=== PATIENT | female | born 2000 | race Caucasian/White ===

== ENCOUNTER 2022-07-01 14:40 | Emergency (ER) | payer BC, SELFPAY ==
[2022-07-01 14:48] VITALS: BP 130/86; PULSE 97; RESP 18; TEMP 36.7; O2SAT 99; BMI 20.1
--- NOTE | 2022-07-01 14:50 | ECG_ITS ---
Test Reason : CHEST PAIN Blood Pressure : / mmHG Vent. Rate : 077 BPM Atrial Rate : 077 BPM P-R Int : 128 ms QRS Dur : 068 ms QT Int : 368 ms P-R-T Axes : 016 083 016 degrees QTc Int : 416 ms Normal sinus rhythm Normal ECG No previous ECGs available Referred By: Jameson Stephens Electronically Signed By:DOE DYER MD
--- NOTE | 2022-07-01 14:51 | ED.CHESTPAIN ---
HPI - Chest Pain General Chief Complaint: Chest Pain Stated Complaint: Chest Pain Time Seen by Provider: 07/01/22 17:49 Source: patient and RN notes reviewed Mode of arrival: ambulatory Limitations: no limitations History of Present Illness HPI narrative: [id number]-female presents today with complaints of pressure-like midsternal left sided chest pain x 1 hour prior to ED arrival. She rates her pain as a 4-10. Patient denies any nausea, vomiting, shortness of breath or palpitations. She states that the pain worsens with palpation of the left side of her chest. She reports that she has had a cough for 1-2 weeks. Related Data Allergies Allergy/AdvReac Type Severity Reaction Status Date / Time coconut Allergy Severe Anaphylaxis Verified 07/01/22 14:48 Review of Systems Constitutional: Constitutional: Reports as per HPI, Denies chills and Denies fatigue Cardiovascular: Cardiovascular: Denies dyspnea Respiratory: Respiratory: Denies cough and Denies dyspnea Gastrointestinal: Gastrointestinal: Denies abdominal pain, Denies constipation and Denies vomiting Genitourinary: Genitourinary: Denies dysuria Endocrine: Endocrine: Denies fatigue [facility] Social History Social History Advance Directives: No Advance Directives Information Provided: No Physical Exam Vital Signs: Vital Signs: Last Vital Signs Temp 98.0 F 07/01/22 14:48 Pulse 97 07/01/22 14:48 Resp 18 07/01/22 14:48 BP 130/86 07/01/22 14:48 Pulse Ox 99 07/01/22 14:48 O2 Del Method 07/01/22 14:48 BMI result Body Mass Index 20.1 Const: General: healthy appearing, comfortable and no acute distress Orientation/consciousness: patient oriented x3 Chest: Chest palpation & inspection: localized rib tenderness with anteroposterior compression Resp: Effort & Inspection: normal respiratory effort Auscultation: clear to auscultation bilaterally Neuro: General: patient oriented x3 Extrem: General: Yes full ROM, Yes capillary refill normal and Yes no pedal edema Medical Decision Making Medical Decision Making [facility] Narrative: RME- 21-year-old female presents for evaluation of headache for 1 week as well as chest pain aside from now and half ago. Denies any fluids and appeared reportedly had a negative at home COVID test prior to arrival. Denies medical history. Vital signs are stable. Plan for EKG and viral swab. Differential Diagnosis Chest wall pain Costochondritis ACS less likely Bronchitis Pneumonia Lab Data Labs: Lab Results 07/01/22 Range/Units 15:27 Influenza Type A (PCR) NEGATIVE (Negative) Influenza Type B (PCR) NEGATIVE (Negative) RSV RNA Qual (PCR) NEGATIVE (Negative) SARS-CoV-2 RNA (RT-PCR) NEGATIVE (Negative) Independent Interpretation I performed an independent interpretation of an: EKG (Sinus rhythm without any acute ischemia) Discharge Plan Discharge Clinical Impression: Acute costochondritis Patient Disposition: Home, Self-Care Instructions: Costochondritis (ED) Additional Instructions: Your EKG performed today was normal. Take Advil or Aleve as directed as needed for symptoms. Follow up with your primary care physician. If any new or worsening symptoms occur, please return for re-evaluation.
[2022-07-01 16:13] LABS: Influenza A PCR NEGATIVE (Negative); Influenza B PCR NEGATIVE (Negative); Resp Syncy Virus RNA Qual PCR NEGATIVE (Negative); SARS COV2 PCR INHOUSE NEGATIVE (Negative)
== END 2022-07-01 17:59 | disposition home or self-care (01) ==
PROVIDERS: Physician Assistant; Emergency Provider Emergency Medicine; PCP Internal Medicine
DX: M94.0 Chondrocostal junction syndrome [Tietze] (principal); Z20.822 Contact with and (suspected) exposure to COVID-19; Z20.828 Contact with and (suspected) exposure to other viral communicable diseases
CPT/HCPCS: 0241U; 93005; 99283

== ENCOUNTER 2022-07-02 22:27 | Emergency (ER) | payer BC, SELFPAY ==
--- NOTE | 2022-07-02 | ECG_ITS ---
Test Reason : CP Blood Pressure : / mmHG Vent. Rate : 082 BPM Atrial Rate : 082 BPM P-R Int : 114 ms QRS Dur : 070 ms QT Int : 348 ms P-R-T Axes : 053 083 036 degrees QTc Int : 406 ms Normal sinus rhythm with sinus arrhythmia Normal ECG When compared with ECG of 01-JUL-2022 15:20, No significant change was found Referred By: Generic ED Physician Electronically Signed By:DOE DYER MD
--- NOTE | ~2022-07-02 | XR_ITS ---
EXAMINATION: XR CHEST CLINICAL INFORMATION: Shortness of breath COMPARISON: None TECHNIQUE: Frontal view of the chest was obtained. FINDINGS: The lungs are clear with no focal consolidation. No evidence of pneumothorax, pulmonary edema, or pleural effusions. The cardiomediastinal silhouette is unremarkable. No acute osseous findings. XR/XR chest 1V IMPRESSION: No acute cardiopulmonary findings.
[2022-07-02 22:30] VITALS: BP 121/80; PULSE 72; RESP 16; TEMP 36.7; O2SAT 99; BMI 20.1
[2022-07-02 22:51] LABS: MANUAL DIFF FLAG NO
[2022-07-02 22:52] LABS: Basophils Absolute Auto 0.1 X10*3/uL (0.0-0.2); Eosinophils Absolute Auto 0.1 X10*3/uL (0.0-0.4); Eosinophils Percent Auto 1.6 % (0-4); Hematocrit 39.3 % (37.0-47.0); Hemoglobin 13.5 g/dl (12.0-16.0); Imm Gran Abs Auto 0.01 X10*3/uL (0.00-0.03); Imm Gran Pct Auto 0.2 % (0.0-0.4); Lymphocytes Absolute Auto 2.6 X10*3/uL (1.2-4.9); Lymphocytes Percent Auto 45.5 % (20-40); Mean Corpuscular HGB Conc 34.4 g/dl (31.0-35.0); Mean Corpuscular Hemoglobin 30.5 pg (27.0-33.0); Mean Corpuscular Volume 88.9 fL (80.0-98.0); Mean Platelet Volume 8.5 fL (9.4-12.3); Monocytes Absolute Auto 0.5 X10*3/uL (0.1-1.2); Monocytes Percent Auto 8.7 % (2-11); Neutrophils Absolute Auto 2.5 x10*3/uL (2.0-8.3); Platelet Count 243 X10*3/uL (160-400); Red Blood Count 4.42 X10*6/uL (4.20-5.50); Red Cell Distribution Width 11.4 % (11.0-16.0); White Blood Count 5.7 X10*3/uL (4.8-10.8)
[2022-07-02 23:13] LABS: Alanine Aminotransferase 16 U/L (0-31); Albumin Level 4.2 g/dL (3.5-5.0); Alkaline Phosphatase 61 U/L (39-117); Anion Gap 14 (12-20); Aspartate Amino Transferase 21 U/L (5-31); Bilirubin Total 0.4 mg/dL (0.0-1.0); Blood Urea Nitrogen 13 mg/dL (9-16); Carbon Dioxide 27 mmol/L (22-29); Chloride 101 mmol/L (96-108); Creatinine Clr Calc Pharmacy 84.4; Estimated Glomerular Filt Rate > 60; Glucose Random 90 mg/dL (60-115); Potassium 3.7 mmol/L (3.3-5.1); Sodium 138 mmol/L (135-145); Total Protein 7.4 g/dL (6.5-8.0)
[2022-07-02 23:21] LABS: Troponin-I High Sensitivity < 3.5 ng/L (<3.5-17.0)
[2022-07-03 00:27] VITALS: BP 112/69; PULSE 83; RESP 20; O2SAT 97
--- NOTE | 2022-07-03 01:17 | ED.CHESTPAIN ---
HPI - Chest Pain General Chief Complaint: Chest Pain Stated Complaint: Chest Pain Time Seen by Provider: 07/03/22 00:10 History of Present Illness HPI narrative: Patient is a 21-year-old female present today with having chest pain. The chest pain is sharp it is over the left chest has been there on and off. Patient was seen yesterday for the same. Had an EKG done that was normal. Patient was discharged home. Continues to have pain today. There is no leg swelling. There is no history of blood clots. Patient is on control. The pain is nonspecific. Comes on suddenly. Last for few seconds. And then goes away. There is no trigger. Patient does not think she is . Related Data Allergies Allergy/AdvReac Type Severity Reaction Status Date / Time coconut Allergy Severe Anaphylaxis Verified 07/01/22 14:48 Review of Systems Review of Systems: Positive chest pain Yes all other systems are reviewed and are negative PMFSH Past Medical History Attestation statement: The following information was validated with the patient. Social History Social History Alcohol intake: current Alcohol intake frequency: holidays/special occasions only Smoked in Last 30 Days: No Use of substances other than those prescribed or required for medical reasons: No Advance Directives: No Advance Directives Information Provided: No Patient : No Physical Exam Vital Signs: Vital Signs: Last Vital Signs Temp 98.0 F 07/02/22 22:30 Pulse 83 07/03/22 00:27 Resp 20 07/03/22 00:27 BP 112/69 07/03/22 00:27 Pulse Ox 97 07/03/22 00:27 O2 Del Method 07/03/22 00:27 BMI result Body Mass Index 20.1 Appearance: Alert. Oriented X3. No acute distress. Eyes: Pupils equal, round and reactive to light. ENT: Pharynx normal. Neck: Normal inspection. Neck supple. No lymph nodes noted. No crepitus CVS: Normal heart rate and rhythm. Pulses normal. Normal S1 and S2 Respiratory: No respiratory distress. Breath sounds normal. No Wheezing. No rales Abdomen: Soft and nontender. No rigidity. No distention. good BS x4 Skin: Skin warm and dry. Normal skin color. Normal skin turgor. Extremities: No lower extremity edema. Neurovascular intact to all extremities. No Lacerations. No Rash Neuro: Oriented X 3. No motor deficit. No sensory deficit. Moving all extermities. No slurred speech Medical Decision Making Medical Decision Making [facility] Narrative: Patient presents today with chest pain that is atypical. She is 21 years old. Has no significant cardiac risk factors. Patient's troponins negative. My interpretation of patient's EKG showed a sinus pattern heart rate is 80 MS cares QT within normal limits. Patient's heart score is less than 3. Unlikely secondary to ACS. Patient's chest x-ray showed no pneumonia no pneumothorax. She does have a history of being on control pills. History not consistent with PE. Patient's D-dimer negative. Making PE unlikely. Pain more likely musculoskeletal. Will discharge patient home. Patient's old record was reviewed. Additional history was obtained from family. Is in stable condition with discharge home Differential Diagnosis Differential Diagnoses: The differential diagnosis associated with the presentation includes Lab Data [facility] Lab Attestation statement: I reviewed the patient's lab results. 07/02/22 22:45 07/02/22 22:45 Labs: Lab Results 07/02/22 07/02/22 07/02/22 Range/Units 22:45 22:45 22:45 WBC 5.7 (4.8-10.8) X10*3/uL RBC 4.42 (4.20-5.50) X10*6/uL Hgb 13.5 (12.0-16.0) g/dl Hct 39.3 (37.0-47.0) % MCV 88.9 (80.0-98.0) fL MCH 30.5 (27.0-33.0) pg MCHC 34.4 (31.0-35.0) g/dl RDW 11.4 (11.0-16.0) % Plt Count 243 (160-400) X10*3/uL MPV 8.5 L (9.4-12.3) fL Immature Gran % (Auto) 0.2 (0.0-0.4) % Neut % (Auto) 43.0 L (45-73) % Lymph % (Auto) 45.5 H (20-40) % [place] % (Auto) 8.7 (2-11) % Eos % (Auto) 1.6 (0-4) % Baso % (Auto) 1.0 (0-2) % Lymph # (Auto) 2.6 (1.2-4.9) X10*3/uL [place] # (Auto) 0.5 (0.1-1.2) X10*3/uL Eos # (Auto) 0.1 (0.0-0.4) X10*3/uL Baso # (Auto) 0.1 (0.0-0.2) X10*3/uL Abs Immat Gran (auto) 0.01 (0.00-0.03) X10*3/uL Absolute Neuts (auto) 2.5 (2.0-8.3) x10*3/uL Absolute Nucleated RBC 0.000 (0.0-0.012) X10*3/uL Nucleated RBC % (auto) 0.0 (0.0-0.2) /100WBC D-Dimer High Sensitivty NG/ML Sodium 138 (135-145) mmol/L Potassium 3.7 (3.3-5.1) mmol/L Chloride 101 (96-108) mmol/L Carbon Dioxide 27 (22-29) mmol/L Anion Gap 14 (12-20) BUN 13 (9-16) mg/dL Creatinine 0.83 (0.5-1.4) mg/dL Estim Creat Clear Calc 84.4 Estimated GFR > 60 Random Glucose 90 (60-115) mg/dL Calcium 9.0 (8.4-10.2) mg/dL Total Bilirubin 0.4 (0.0-1.0) mg/dL AST 21 (5-31) U/L ALT 16 (0-31) U/L Alkaline Phosphatase 61 (39-117) U/L Troponin I High Sens < 3.5 (<3.5-17.0) ng/L Total Protein 7.4 (6.5-8.0) g/dL Albumin 4.2 (3.5-5.0) g/dL Urine Color Urine Appearance Urine pH (5.0-9.0) Ur Specific [place] (1.005-1.025) Urine Protein (Neg-Trace) mg/dL Urine Glucose (UA) (Negative) mg/dL Urine Ketones (Negative) mg/dL Urine Blood (Negative) Urine Nitrite (Negative) Ur Leukocyte Esterase (Negative) Urine RBC (0-2) /HPF Urine WBC (0-5) /HPF Ur Squamous Epith Cells (0-2) /HPF Urine Bacteria (None Seen) Hyaline Casts (0-2) /LPF Urine Test (NEGATIVE) 07/03/22 07/03/22 07/03/22 Range/Units 01:29 01:29 01:29 WBC (4.8-10.8) X10*3/uL RBC (4.20-5.50) X10*6/uL Hgb (12.0-16.0) g/dl Hct (37.0-47.0) % MCV (80.0-98.0) fL MCH (27.0-33.0) pg MCHC (31.0-35.0) g/dl RDW (11.0-16.0) % Plt Count (160-400) X10*3/uL MPV (9.4-12.3) fL Immature Gran % (Auto) (0.0-0.4) % Neut % (Auto) (45-73) % Lymph % (Auto) (20-40) % [place] % (Auto) (2-11) % Eos % (Auto) (0-4) % Baso % (Auto) (0-2) % Lymph # (Auto) (1.2-4.9) X10*3/uL [place] # (Auto) (0.1-1.2) X10*3/uL Eos # (Auto) (0.0-0.4) X10*3/uL Baso # (Auto) (0.0-0.2) X10*3/uL Abs Immat Gran (auto) (0.00-0.03) X10*3/uL Absolute Neuts (auto) (2.0-8.3) x10*3/uL Absolute Nucleated RBC (0.0-0.012) X10*3/uL Nucleated RBC % (auto) (0.0-0.2) /100WBC D-Dimer High Sensitivty < 150 NG/ML Sodium (135-145) mmol/L Potassium (3.3-5.1) mmol/L Chloride (96-108) mmol/L Carbon Dioxide (22-29) mmol/L Anion Gap (12-20) BUN (9-16) mg/dL Creatinine (0.5-1.4) mg/dL Estim Creat Clear Calc Estimated GFR Random Glucose (60-115) mg/dL Calcium (8.4-10.2) mg/dL Total Bilirubin (0.0-1.0) mg/dL AST (5-31) U/L ALT (0-31) U/L Alkaline Phosphatase (39-117) U/L Troponin I High Sens < 3.5 (<3.5-17.0) ng/L Total Protein (6.5-8.0) g/dL Albumin (3.5-5.0) g/dL Urine Color Yellow Urine Appearance Clear Urine pH 7.0 (5.0-9.0) Ur Specific [place] >= 1.030 H (1.005-1.025) Urine Protein Trace (Neg-Trace) mg/dL Urine Glucose (UA) Negative (Negative) mg/dL Urine Ketones Trace (Negative) mg/dL Urine Blood Negative (Negative) Urine Nitrite Negative (Negative) Ur Leukocyte Esterase Trace H (Negative) Urine RBC 0-2 (0-2) /HPF Urine WBC 0-5 (0-5) /HPF Ur Squamous Epith Cells 6-10 (0-2) /HPF Urine Bacteria 1+ (None Seen) Hyaline Casts 0-2 (0-2) /LPF Urine Test (NEGATIVE) 07/03/22 Range/Units 01:29 WBC (4.8-10.8) X10*3/uL RBC (4.20-5.50) X10*6/uL Hgb (12.0-16.0) g/dl Hct (37.0-47.0) % MCV (80.0-98.0) fL MCH (27.0-33.0) pg MCHC (31.0-35.0) g/dl RDW (11.0-16.0) % Plt Count (160-400) X10*3/uL MPV (9.4-12.3) fL Immature Gran % (Auto) (0.0-0.4) % Neut % (Auto) (45-73) % Lymph % (Auto) (20-40) % [place] % (Auto) (2-11) % Eos % (Auto) (0-4) % Baso % (Auto) (0-2) % Lymph # (Auto) (1.2-4.9) X10*3/uL [place] # (Auto) (0.1-1.2) X10*3/uL Eos # (Auto) (0.0-0.4) X10*3/uL Baso # (Auto) (0.0-0.2) X10*3/uL Abs Immat Gran (auto) (0.00-0.03) X10*3/uL Absolute Neuts (auto) (2.0-8.3) x10*3/uL Absolute Nucleated RBC (0.0-0.012) X10*3/uL Nucleated RBC % (auto) (0.0-0.2) /100WBC D-Dimer High Sensitivty NG/ML Sodium (135-145) mmol/L Potassium (3.3-5.1) mmol/L Chloride (96-108) mmol/L Carbon Dioxide (22-29) mmol/L Anion Gap (12-20) BUN (9-16) mg/dL Creatinine (0.5-1.4) mg/dL Estim Creat Clear Calc Estimated GFR Random Glucose (60-115) mg/dL Calcium (8.4-10.2) mg/dL Total Bilirubin (0.0-1.0) mg/dL AST (5-31) U/L ALT (0-31) U/L Alkaline Phosphatase (39-117) U/L Troponin I High Sens (<3.5-17.0) ng/L Total Protein (6.5-8.0) g/dL Albumin (3.5-5.0) g/dL Urine Color Urine Appearance Urine pH (5.0-9.0) Ur Specific [place] (1.005-1.025) Urine Protein (Neg-Trace) mg/dL Urine Glucose (UA) (Negative) mg/dL Urine Ketones (Negative) mg/dL Urine Blood (Negative) Urine Nitrite (Negative) Ur Leukocyte Esterase (Negative) Urine RBC (0-2) /HPF Urine WBC (0-5) /HPF Ur Squamous Epith Cells (0-2) /HPF Urine Bacteria (None Seen) Hyaline Casts (0-2) /LPF Urine Test NEGATIVE (NEGATIVE) Independent Interpretation I performed an independent interpretation of an: EKG Interpretation: Sinus heart rate is 70 MS QRS QT within normal limits is no acute ST segment elevation noted Independent Historian Clinical information obtained from an independent historian. History obtained from or confirmed by: Parent External Record Review ER record from yesterday Discharge Plan Discharge Clinical Impression: Chest pain Patient Disposition: Home, Self-Care Instructions: Chest Pain (DC) Referrals: Pedro Waddell MD [Primary Care Provider] -
[2022-07-03 01:37] LABS: Appearance Urine Clear; Color Urine Yellow; Glucose Urine UA Negative (Negative); Leukocyte Esterase Urine Trace (Negative); Nitrite Urine Negative (Negative); Specific Gravity - Urine >= 1.030 (1.005-1.025); UMIC TRIGGER UACC YES; Urine Blood Negative (Negative); Urine Ketones Trace mg/dL (Negative); Urine Protein Trace mg/dL (Neg-Trace)
[2022-07-03 01:39] LABS: UPreg QC Valid YES; Urine Pregnancy NEGATIVE (NEGATIVE)
[2022-07-03 01:40] LABS: Bacteria Urine 1+ (None Seen); Hyaline Casts Urine 0-2 /LPF (0-2); RBC Urine 0-2 /HPF (0-2); WBC Urine 0-5 /HPF (0-5)
[2022-07-03 01:44] LABS: D Dimer High Sensitivity < 150 NG/ML
[2022-07-03 01:58] LABS: Troponin-I High Sensitivity < 3.5 ng/L (<3.5-17.0)
== END 2022-07-03 03:57 | disposition home or self-care (01) ==
PROVIDERS: Emergency Provider Emergency Medicine Emergency Medical Services; PCP Internal Medicine
DX: R07.89 Other chest pain (principal); Z79.899 Other long term (current) drug therapy
CPT/HCPCS: 36415; 71045; 80053; 81001; 81025; 84484; 85025; 85379; 93005; 99283; 99285

== ENCOUNTER → 2024-03-05 06:46 | Outpatient (BNV) | payer BC, SELFPAY | PROVIDERS: Emergency Provider Emergency Medicine Emergency Medical Services; PCP Internal Medicine; Visit Provider Internal Medicine | DX: R07.9 Chest pain, unspecified (principal) | CPT/HCPCS: 93010 ==

== ENCOUNTER 2024-03-05 06:47 | Emergency (ER) | payer BC, SELFPAY ==
--- NOTE | 2024-03-05 | ECG_ITS ---
Test Reason : CHEST PAIN Blood Pressure : / mmHG Vent. Rate : 087 BPM Atrial Rate : 087 BPM P-R Int : 116 ms QRS Dur : 068 ms QT Int : 354 ms P-R-T Axes : 046 084 048 degrees QTc Int : 425 ms Normal sinus rhythm with sinus arrhythmia Normal ECG When compared with ECG of 02-JUL-2022 22:38, No significant change was found Referred By: Generic ED Physician Electronically Signed By:LORI RUBIO
--- NOTE | 2024-03-05 07:01 | ED_ITS ---
HPI - Chest Pain General Chief Complaint: Chest Pain Stated Complaint: Chest Pains Time Seen by Provider: 03/05/24 07:00 Source: patient and other (Significant other) Mode of arrival: ambulatory Limitations: no limitations History of Present Illness ED Provider: Dr. Peter Bain HPI narrative: 23-year-old female who presents emergency department for evaluation of sudden onset of anterior pleuritic chest pain which woke her up from sleep. The patient states that the pain started a proximally 1 hour prior to coming to the emergency department and has been constant. She points to her superior anterior chest when asked to localize the pain. She states the pain is a constant pressure-like pain which is worse with breathing. She does feel short of breath and states she does have dyspnea on exertion. The patient denied any prodromal illness. She denied fever, chills, rhinorrhea, sore throat, cough, nausea, vomiting or diarrhea. The patient denies any injury. She has not gone on any long trips, had recent surgeries or noted any pain or swelling of her extremities. Patient was not on control pills. The patient was seen in the emergency department 07/01/2022 and 07/03/2022 and diagnosed with chest wall pain/costochondritis. Her workup was negative at that time. 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 She denies tobacco use. She states she occasionally drinks alcohol and last drank 2 weeks prior. She denies drug use. Social History Social History Alcohol intake: current Alcohol intake frequency: holidays/special occasions only Advance Directives: No Advance Directives Information Provided: No Do you have a plan to hurt others: No Plan Physical Exam 2 Vital Signs: Vital Signs: Last Vital Signs Temp 97.7 F 03/05/24 07:34 Pulse 75 03/05/24 07:34 Resp 16 03/05/24 07:34 BP 129/75 03/05/24 07:34 Pulse Ox 99 03/05/24 07:34 O2 Del Method Room Air 03/05/24 07:34 BMI result Body Mass Index 25.3 Vital signs revealed an elevated blood pressure of 134/94. Exam: General: Awake, alert in no distress Head: Normocephalic, atraumatic EENT: PERRL, Lids normal, sclera normal, conjunctiva normal, nose normal , ears normal, throat without erythema or exudates Neck: Supple, no adenopathy Lung: breath sounds symmetric, no wheezing, rales or rhonchi Chest: symmetric movement, tenderness palpation over the anterior chest over the costochondral joints bilaterally Heart: regular rate and rhythm, normal S1, S2 no murmurs or rubs Abdomen: soft, non-tender, nondistended, normal bowel sounds Back: no vertebral tenderness, no CVAT Extremities: no deformities, moves all extremities symmetrically Skin: Slightly diaphoretic Neuro: Awake, alert, oriented, normal speech, cranial nerves intact, moves all extremities symmetrically Psych: Pleasant, cooperative Medications Administered Discontinued Medications Generic Name Dose Route Start Last Admin Trade Name Freq PRN Reason Stop Dose Admin Ketorolac Tromethamine 15 mg 03/05/24 07:13 03/05/24 07:43 Ketorolac Tromethamine 15 Mg/Ml Vial IVPUSH 03/05/24 07:14 15 mg ONCE STA Administration Medical Decision Making Medical Decision Making [facility] Narrative: 23-year-old female who presents emergency department for evaluation of superior anterior pleuritic chest pain which began 1 hour prior to coming to the emergency department. Patient complains of shortness of breath and dyspnea on exertion. No significant risk factors for coronary artery disease or pulmonary embolism. Exam did reveal an elevated blood pressure. She was diaphoretic. She did have anterior chest pain mainly over the costochondral joints. Differential diagnosis: ?Includes but is not limited to myocardial infarction, myocardial ischemia, pulmonary embolism, chest wall your chondritis, anemia, electrolyte abnormalities Following evaluation was ordered: CBC, CMP, troponin, PT/INR, PTT, D-dimer, quantitative beta-hCG Patient was initially treated with the following: monitor tech, O2 saturation monitor, IV insert, Toradol 30 mg IV Course: 07:56 My interpretation patient's laboratory evaluation is as follows: CBC was normal. CMP was normal. D-dimer was below detectable limits. Troponin was below detectable limits. Quantitative beta-hCG was negative. Twelve EKG was unremarkable. At this time, I do not think that the patient has a pulmonary embolism or cardiac cause for pain. Given the physical finding of tenderness over the costochondral joints the patient most likely has acute costochondritis and I did discuss this with her. Patient did get some relief with the IV Toradol. She was advised to take ibuprofen 400 mg q.6 hours (3 times a day) for 4 days. She was also advised to apply a heating pad on low to her chest wall to help reduce the pain as well. Patient was given printed and verbal instructions and discharged home. She was also given a work note. Admission/Observation Consideration of admission/observation: Escalation of care including admission/observation considered (Yes) Lab Data [facility] Lab Attestation statement: I reviewed the patient's lab results. 03/05/24 07:00 03/05/24 07:00 Labs: Lab Results 03/05/24 Range/Units 07:00 WBC 4.3 L (4.8-10.8) X10*3/uL RBC 4.37 (4.20-5.50) X10*6/uL Hgb 13.8 (12.0-16.0) g/dl Hct 39.0 (37.0-47.0) % MCV 89.2 (80.0-98.0) fL MCH 31.6 (27.0-33.0) pg MCHC 35.4 H (31.0-35.0) g/dl RDW 11.5 (11.0-16.0) % Plt Count 203 (160-400) X10*3/uL MPV 8.5 L (9.4-12.3) fL Immature Gran % (Auto) 0.0 (0.0-0.4) % Neut % (Auto) 52.4 (45-73) % Lymph % (Auto) 37.4 (20-40) % [place] % (Auto) 7.8 (2-11) % Eos % (Auto) 1.9 (0-4) % Baso % (Auto) 0.5 (0-2) % Lymph # (Auto) 1.6 (1.2-4.9) X10*3/uL [place] # (Auto) 0.3 (0.1-1.2) X10*3/uL Eos # (Auto) 0.1 (0.0-0.4) X10*3/uL Baso # (Auto) 0.0 (0.0-0.2) X10*3/uL Abs Immat Gran (auto) 0.00 (0.00-0.03) X10*3/uL Absolute Neuts (auto) 2.2 (2.0-8.3) x10*3/uL Absolute Nucleated RBC 0.000 (0.0-0.012) X10*3/uL Nucleated RBC % (auto) 0.0 (0.0-0.2) /100WBC PT 12.2 (10.9-12.4) SEC INR 1.0 (0.9-1.1) APTT 37.2 H (26.0-36.8) SEC D-Dimer High Sensitivty < 150 NG/ML Sodium 140 (135-145) mmol/L Potassium 4.2 (3.3-5.1) mmol/L Chloride 108 (96-108) mmol/L Carbon Dioxide 20 L (22-29) mmol/L Anion Gap 16 (12-20) BUN 14 (9-16) mg/dL Creatinine 0.74 (0.5-1.4) mg/dL Estim Creat Clear Calc 98.9 Estimated GFR > 60 Random Glucose 87 (60-115) mg/dL Calcium 9.6 D (8.4-10.2) mg/dL Total Bilirubin 0.4 (0.0-1.0) mg/dL AST 24 (5-31) U/L ALT 20 (0-31) U/L Alkaline Phosphatase 75 (39-117) U/L Troponin I High Sens < 2.7 (<3.5-17.0) ng/L Total Protein 7.6 (6.5-8.0) g/dL Albumin 4.3 (3.5-5.0) g/dL Independent Interpretation I performed an independent interpretation of an: EKG Interpretation: My interpretation of the patient's 12 EKG done at 06:46 hours is as follows: Normal sinus rhythm rate of 87, normal MD interval, QRS duration QTC interval, no ST segment elevation, no ST segment depression, no significant T-wave abnormalities. This is a normal EKG. Independent Historian Clinical information obtained from an independent historian. History obtained from or confirmed by: Other (Significant other) Discharge Plan Discharge Clinical Impression: Acute costochondritis Patient Disposition: Home, Self-Care Instructions: Costochondritis (ED) Additional Instructions: Your blood work was unremarkable. Your EKG was normal. You did have tenderness with palpation over the costochondral joints (chest rib joints) of your chest. Your presentation is consistent with costochondritis which is inflammation of these joints. Take ibuprofen 200 mg pills, 2 pills (400 mg) every 6 hours (3 times a day) then after 4 days you can take the ibuprofen every 6 hours as needed. Apply a heating pad on low to chest wall to help reduce the pain as well. Do this for 15 minutes 4 times a day. Follow-up with your doctor in 2 days. Please return to the emergency department if your symptoms get worse or if you develop any symptoms that are concerning to you. Please see the work note Stand Alone Forms: Work/School Release Print Language: Azeri
[2024-03-05 07:06] VITALS: BP 134/94; PULSE 78; RESP 16; TEMP 37; O2SAT 98; BMI 25.3
[2024-03-05 07:06] LABS: MANUAL DIFF FLAG NO
[2024-03-05 07:08] LABS: Basophils Percent Auto 0.5 % (0-2); Eosinophils Absolute Auto 0.1 X10*3/uL (0.0-0.4); Eosinophils Percent Auto 1.9 % (0-4); Hemoglobin 13.8 g/dl (12.0-16.0); Lymphocytes Absolute Auto 1.6 X10*3/uL (1.2-4.9); Lymphocytes Percent Auto 37.4 % (20-40); Mean Corpuscular HGB Conc 35.4 g/dl (31.0-35.0); Mean Corpuscular Hemoglobin 31.6 pg (27.0-33.0); Mean Corpuscular Volume 89.2 fL (80.0-98.0); Mean Platelet Volume 8.5 fL (9.4-12.3); Monocytes Absolute Auto 0.3 X10*3/uL (0.1-1.2); Monocytes Percent Auto 7.8 % (2-11); Neutrophils Absolute Auto 2.2 x10*3/uL (2.0-8.3); Neutrophils Percent Auto 52.4 % (45-73); Platelet Count 203 X10*3/uL (160-400); Red Blood Count 4.37 X10*6/uL (4.20-5.50); Red Cell Distribution Width 11.5 % (11.0-16.0); White Blood Count 4.3 X10*3/uL (4.8-10.8)
[2024-03-05 07:12] LABS: Prothrombin Time 12.2 SEC (10.9-12.4)
--- NOTE | 2024-03-05 07:17 | MHC.EDTECH ---
lab was contacted to add D-Dimer and PTT onto previous blood draw. results pending
[2024-03-05 07:22] LABS: Alanine Aminotransferase 20 U/L (0-31); Albumin Level 4.3 g/dL (3.5-5.0); Alkaline Phosphatase 75 U/L (39-117); Anion Gap 16 (12-20); Aspartate Amino Transferase 24 U/L (5-31); Bilirubin Total 0.4 mg/dL (0.0-1.0); Blood Urea Nitrogen 14 mg/dL (9-16); Calcium 9.6 mg/dL (8.4-10.2); Carbon Dioxide 20 mmol/L (22-29); Chloride 108 mmol/L (96-108); Creatinine Clr Calc Pharmacy 98.9; Estimated Glomerular Filt Rate > 60; Glucose Random 87 mg/dL (60-115); Potassium 4.2 mmol/L (3.3-5.1); Sodium 140 mmol/L (135-145); Total Protein 7.6 g/dL (6.5-8.0)
[2024-03-05 07:23] LABS: Partial Thromboplastin Time 37.2 SEC (26.0-36.8)
[2024-03-05 07:27] LABS: D Dimer High Sensitivity < 150 NG/ML
[2024-03-05 07:34] VITALS: BP 129/75; PULSE 75; RESP 16; TEMP 36.5; O2SAT 99
[2024-03-05 07:39] LABS: Troponin-I High Sensitivity < 2.7 ng/L (<3.5-17.0)
[2024-03-05] MEDS: Ketorolac Tromethamine 15 MG/ML VIAL IVPUSH (07:43)
[2024-03-05 07:58] LABS: HCG Quantitative < 2 mIU/mL
[2024-03-05 08:09] VITALS: BP 118/74; PULSE 70; RESP 14; TEMP 36.6; O2SAT 100
[2024-03-05 08:17] VITALS: BP 118/74; PULSE 70; RESP 14; TEMP 36.6; O2SAT 100
== END 2024-03-05 08:17 | disposition home or self-care (01) ==
PROVIDERS: Emergency Provider Emergency Medicine Emergency Medical Services; PCP Internal Medicine
DX: M94.0 Chondrocostal junction syndrome [Tietze] (principal); R07.89 Other chest pain; I49.8 Other specified cardiac arrhythmias; R10.2 Pelvic and perineal pain; Z79.899 Other long term (current) drug therapy
CPT/HCPCS: 36415; 80053; 84484; 84702; 85025; 85379; 85610; 85730; 93005; 96372; 99284; J1885